=== PATIENT | female | born 1980 | race Caucasian/White ===

== ENCOUNTER 2019-07-04 15:22 | Emergency (ER) | payer OTHER, SELFPAY ==
[2019-07-04 15:26] VITALS: BP 129/81; PULSE 94; RESP 18; TEMP 36.2; O2SAT 94; BMI 44.9
--- NOTE | 2019-07-04 15:51 | DI.RAD.S_ITS ---
PROCEDURE: XR CHEST 1V INDICATIONS: chest pain TECHNIQUE: One view of the chest was acquired. COMPARISON: None. FINDINGS: Surgical changes and devices: None. Lungs and pleura: Lungs are clear. No pleural effusions or pneumothorax. Mediastinum: Mediastinal contours appear normal. Heart size is normal. Bones and chest wall: No suspicious bony lesions. Overlying soft tissues appear unremarkable. IMPRESSION: No acute cardio pulmonary disease. Dictated by: Anais Holley M.D. on 07/04/2019 at 16:58 Approved by: Anais Holley M.D. on 07/04/2019 at 16:59
[2019-07-04 16:28] LABS: Add Manual Diff / Slide Review NO; Basophils Absolute Auto 100 /uL (0-100); Basophils Percent Auto 0.5 % (0-2); Eosinophils Absolute Auto 0 /uL (0-450); Eosinophils Percent Auto 0.2 % (2-4); Hematocrit 38.4 % (36-46); Hemoglobin 12.8 g/dL (12.0-16.0); Lymphocytes Absolute Auto 2000 /uL (1100-4500); Mean Corpuscular HGB Conc 33.3 % (30-36); Mean Corpuscular Hemoglobin 31.6 PG (26-34); Mean Corpuscular Volume 94.8 fL (80-100); Monocytes Absolute Auto 700 /uL (0-900); Monocytes Percent Auto 4.3 % (3-14); Neutrophils Absolute Auto 12800 /uL (1500-7000); Platelet Count 480 X10^3/uL (150-400); Red Blood Cell Count 4.05 X10^6/uL (4.0-5.2); Red Cell Distribution Width 12.8 % (11.6-14.8); White Blood Cell Count 15.6 X10^3/uL (4.5-11.0)
[2019-07-04 16:36] LABS: Prothrombin Time 11.5 SECONDS (10.1-12.7)
[2019-07-04 16:38] VITALS: BP 131/71; PULSE 92; O2SAT 93
[2019-07-04 16:39] LABS: PTT Partial Thromboplastin Tim 34 SECONDS (26.4-36.2)
[2019-07-04 16:41] LABS: Alanine Aminotransferase 24 IU/L (9-52); Albumin 4.3 g/dL (3.5-5.0); Albumin Globulin Ratio 1.2 (1.0-2.8); Alkaline Phosphatase 65 U/L (38-126); Aspartate Aminotransferase 19 IU/L (14-36); Bilirubin Total 0.5 mg/dL (0.2-1.3); Blood Urea Nitrogen 12 mg/dL (7-17); Calcium 9.6 mg/dL (8.4-10.2); Carbon Dioxide 26 mmol/L (22-32); Chloride 100 mmol/L (98-107); Creatine Kinase 61 U/L (30-135); Estimated Glomerular Filt Rate > 60.0 mL/min (>60); Globulin 3.6 g/dL (1.7-4.1); Glucose 124 mg/dL (70-100); HEMOLYSIS < 15 (0-50); Lipase 171 U/L (23-300); Potassium 4.4 mmol/L (3.4-5.1); Sodium 137 mmol/L (137-145); Total Protein 7.9 g/dL (6.3-8.2)
[2019-07-04 16:52] LABS: Troponin I < 0.012 ng/mL (0.01-0.034)
--- NOTE | 2019-07-04 17:02 | ED_ITS ---
HPI - Dizziness <PARRISH Eagle - Last Filed: 07/04/19 22:10> General Chief Complaint: Dizziness Stated Complaint: DIZZY NAUSEA HEADACHE Time Seen by Provider: 07/04/19 16:08 Source: patient Mode of arrival: ambulatory Limitations: no limitations History of Present Illness HPI Narrative: 39-year-old female with a history of DM II, PCOS, hypertension, presents emergency department today complaining of dizziness starting on Sunday. States it feels like the room is spinning, the dizziness got worse around noon today and she started feeling nauseated. She states she has had an episode of vertigo in the past but this feels a little bit different. Additionally, she states that she feels her entire body is weak. She denies any fevers, ear pain, headaches, vision changes, recent illness, neck pain, chest pain, shortness of breath, abdominal pain, vomiting, diarrhea, lower leg swelling, facial droop, slurred speech, difficulty swelling, or syncope. Related Data Home Medications Medication Instructions Recorded Confirmed hydrochlorothiazide 25 mg PO DAILY 07/04/19 07/04/19 lisinopril 20 mg PO DAILY 07/04/19 07/04/19 pioglitazone mg 07/04/19 sitagliptin-metformin [Janumet] tab 07/04/19 Previous Rx's Medication Instructions Recorded meclizine 50 mg PO BID PRN #10 tab 07/04/19 Allergies Allergy/AdvReac Type Severity Reaction Status Date / Time No Known Drug Allergies Allergy Verified 07/04/19 15:30 Review of Systems <PARRISH Eagle - Last Filed: 07/04/19 22:10> Review of Systems Narrative: REVIEW OF SYSTEMS: GENERAL: Denies fever, chills, malaise, or wt. loss. HENT: No head trauma, hearing loss, rhinorrhea, epistaxis, sinus pressure, sore throat, or dysphagia. EYES: No loss of vision, double vision, eye pain, or irritation. CARDIOVASCULAR: No chest pain, palpitations, edema, syncope, or orthopnea. RESPIRATORY: No shortness of breath, cough, or wheeze. GASTROINTESTINAL: Complains of nausea, see HPI. GENITOURINARY: No flank pain, urinary incontinence, hesitancy, frequency, or dysuria. MUSCULOSKELETAL: No pain, weakness, or deformities. INTEGUMENTARY: No rash, lesions, or pruritus. NEURO: Complains of vertigo, see HPI. No numbness, tingling, memory loss, confusion, or headaches. PSYCH: No behavior or mood changes. LYMPHATIC: No lymphadenopathy. PFSH <PARRISH Eagle - Last Filed: 07/04/19 22:10> Medical History Diabetes (Acute) Social History Smoking Status: Former smoker Social History Smoking Status: Former smoker Exam <PARRISH Eagle - Last Filed: 07/04/19 22:10> Initial Vital Signs Initial Vital Signs: Vital Signs Temperature 97.1 F L 07/04/19 15:26 Pulse Rate 94 H 07/04/19 15:26 Respiratory Rate 18 07/04/19 15:26 Blood Pressure 129/81 07/04/19 15:26 Pulse Oximetry 94 07/04/19 15:26 PHYSICAL EXAMINATION: GENERAL: Well groomed, alert, and cooperative. Answers questions promptly and appropriately. Vital signs noted. Patient is lying down a stretcher covering her eyes due to dizziness during exam. HENT: Normocephalic, atraumatic. Ear canals patent, TMs and visible due to impacted wax in both ear canals bilaterally, Oral mucosa is pink and moist, no caries or lesions present. Pharynx without erythema. EYES: PERRLA, EOMIs, conjunctiva pink, sclera white, no periorbital swelling. Left beating horizontal nystagmus when patient is asked to looked to left. NECK: Full range of motion, nontender. LYMPH: No lymphadenopathy. CARDIOVASCULAR: S1 and S2 sounds normal. Regular rate and rhythm, no murmurs, cl icks, or bruits. No pedal edema. RESPIRATORY: Normal respiratory rate, trachea midline, airway patent. No stridor, nasal flaring or accessory muscle use. Lungs are clear in all mayes without wheeze, rhonchi, or crackles. GASTROINTESTINAL: Bowel sounds normoactive. Abdomen is soft and non-tender. No organomegaly. MUSCULOSKELETAL: Normal gait and coordination. Equal tone and mass bilaterally. No spinal tenderness or deformities. EXTREMITIES: CMS intact. Moves all extremities. SKIN: Warm, dry, soft, appropriate color for ethnicity. No lesions, rashes, or wounds. NEURO: Alert and Oriented X 3. CN III-XII grossly intact. Good coordination. No ataxia, or sensory deficits, or cognitive issues. 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 Patient is right-hand dominant. Patient denies decrease in light touch sensation to upper or lower extremities. NIH score is 0. Positive Maribel- Hallpike maneuver with increased symptoms such as nausea and dizziness. PSYCH: Appropriate affect and mood. <Noelle Heredia DO - Last Filed: 07/08/19 21:44> Initial Vital Signs Initial Vital Signs: Vital Signs Temperature 97.1 F L 07/04/19 15:26 Pulse Rate 94 H 07/04/19 15:26 Respiratory Rate 18 07/04/19 15:26 Blood Pressure 129/81 07/04/19 15:26 Pulse Oximetry 94 07/04/19 15:26 Scores <PARRISH Eagle - Last Filed: 07/04/19 22:10> NIH Stroke Scale Level of Conciousness: Alert, keenly responsive Ask month/age: Answers both questions correctly. Open/close eyes, close hand: Performs both tasks correctly Best gaze horizontal: Normal Visual mayes: No visual loss Facial palsy: Normal symetrical movement Left arm drift: No drift for full 10 sec Right arm drift: No drift for full 10 sec Left leg drift: No drift for full 10 sec Right leg drift: No drift for full 10 sec Limb ataxia: Absent Sensory on face/arms/legs: Normal, no sensory loss Best language: No aphasia, normal Dysarthria: Normal Extinction or inattention: No abnormality Total NIH Stroke scale score: 0 Course <PARRISH Eagle - Last Filed: 07/04/19 22:10> Course Course Narrative: Examination of slight decrease in strength left arm was concerning. CT in March CT head were ordered after much discussion with patient, she agreed that her symptoms are concerning. Patient states she felt slightly the better after administration of fluid and Zofran however she still felt dizzy. After test results came back as negative she was given meclizine, she states she continued to feel better after this. 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 She states is often above 15 and that a white blood cell count 15 was good for her. Orders Ordered: Discontinued Medications Sodium Chloride (Normal Saline 0.9%) 1,000 mls @ 1,000 mls/hr IV BOLUS ONE Stop: 07/04/19 17:55 Last Infusion: 07/04/19 19:48 Dose: 0 mls/hr Documented by: Admin: 07/04/19 17:06 Dose: 1,000 mls/hr Documented by: OG Meclizine HCl (Antivert) 50 mg PO NOW ONE Stop: 07/04/19 19:35 Last Admin: 07/04/19 19:44 Dose: 50 mg Documented by: LELA Ondansetron HCl (Zofran) 4 mg IV NOW ONE Stop: 07/04/19 16:57 Last Admin: 07/04/19 17:06 Dose: 4 mg Documented by: OG Consultations Consultation #1: Patient was staffed with Dr. Heredia Vital Signs Vital signs: Vital Signs - 8 hr 07/04/19 15:26 07/04/19 16:38 07/04/19 19:54 Temperature 97.1 F L Pulse Rate 94 H 92 H 82 Respiratory Rate 18 19 Blood Pressure 129/81 Blood Pressure [Left Arm] 131/71 115/69 Pulse Oximetry 94 93 100 <Noelle Heredia, - Last Filed: 07/08/19 21:44> Orders Ordered: Discontinued Medications Sodium Chloride (Normal Saline 0.9%) 1,000 mls @ 1,000 mls/hr IV BOLUS ONE Stop: 07/04/19 17:55 Last Infusion: 07/04/19 19:48 Dose: 0 mls/hr Documented by: Admin: 07/04/19 17:06 Dose: 1,000 mls/hr Documented by: OG Meclizine HCl (Antivert) 50 mg PO NOW ONE Stop: 07/04/19 19:35 Last Admin: 07/04/19 19:44 Dose: 50 mg Documented by: LELA Ondansetron HCl (Zofran) 4 mg IV NOW ONE Stop: 07/04/19 16:57 Last Admin: 07/04/19 17:06 Dose: 4 mg Documented by: HFARRINGTO Vital Signs Vital signs: Vital Signs - 8 hr 07/04/19 15:26 07/04/19 16:38 07/04/19 19:54 Temperature 97.1 F L Pulse Rate 94 H 92 H 82 Respiratory Rate 18 19 Blood Pressure 129/81 Blood Pressure [Left Arm] 131/71 115/69 Pulse Oximetry 94 93 100 MDM - Dizziness <PARRISH Eagle - Last Filed: 07/04/19 22:10> Medical Records Attestation: I reviewed the patient's medical records. Lab Data Attestation: I reviewed the patient's lab results. Result diagrams: 07/04/19 16:21 07/04/19 16:21 Labs: Lab Results 07/04/19 07/04/19 07/04/19 Range/Units 16:21 16:21 16:21 WBC 15.6 H (4.5-11.0) X10^3/uL RBC 4.05 (4.0-5.2) X10^6/uL Hgb 12.8 (12.0-16.0) g/dL Hct 38.4 (36-46) % MCV 94.8 (80-100) fL MCH 31.6 (26-34) PG MCHC 33.3 (30-36) % RDW 12.8 (11.6-14.8) % Plt Count 480 H (150-400) X10^3/uL Neut % (Auto) 82.0 H (50-75) % Lymph % (Auto) 13.0 L (25-40) % Newton % (Auto) 4.3 (3-14) % Eos % (Auto) 0.2 L (2-4) % Baso % (Auto) 0.5 (0-2) % Neut # (Auto) 57463 H (3183-6715) /uL Lymph # (Auto) 2000 (1483-8223) /uL Newton # (Auto) 700 (0-900) /uL Eos # (Auto) 0 (0-450) /uL Baso # (Auto) 100 (0-100) /uL PT 11.5 (10.1-12.7) SECONDS INR 1.0 (0.9-1.3) APTT 34 (26.4-36.2) SECONDS Sodium 137 (137-145) mmol/L Potassium 4.4 (3.4-5.1) mmol/L Chloride 100 (98-107) mmol/L Carbon Dioxide 26 (22-32) mmol/L BUN 12 (7-17) mg/dL Creatinine 0.60 (0.52-1.04) mg/dL Estimated GFR > 60.0 (>60) mL/min BUN/Creatinine Ratio 20.0 (6-22) Glucose 124 H (70-100) mg/dL Calcium 9.6 (8.4-10.2) mg/dL Total Bilirubin 0.5 (0.2-1.3) mg/dL AST 19 (14-36) IU/L ALT 24 (9-52) IU/L Alkaline Phosphatase 65 (38-126) U/L Total Creatine Kinase 61 (30-135) U/L CK-MB (CK-2) TNP CK-MB (CK-2) Rel Index TNP Troponin I < 0.012 (0.01-0.034) ng/mL Total Protein 7.9 (6.3-8.2) g/dL Albumin 4.3 (3.5-5.0) g/dL Globulin 3.6 (1.7-4.1) g/dL Albumin/Globulin Ratio 1.2 (1.0-2.8) Lipase 171 (23-300) U/L HCG, Quant mIU/mL Urine RBC (0-5/HPF) Urine WBC (0-5/HPF) Ur Squamous Epith Cells (0-5/HPF) Urine Bacteria (None) Ur Culture Indicated? 07/04/19 07/04/19 Range/Units 16:21 17:50 WBC (4.5-11.0) X10^3/uL RBC (4.0-5.2) X10^6/uL Hgb (12.0-16.0) g/dL Hct (36-46) % MCV (80-100) fL MCH (26-34) PG MCHC (30-36) % RDW (11.6-14.8) % Plt Count (150-400) X10^3/uL Neut % (Auto) (50-75) % Lymph % (Auto) (25-40) % Newton % (Auto) (3-14) % Eos % (Auto) (2-4) % Baso % (Auto) (0-2) % Neut # (Auto) (6611-5770) /uL Lymph # (Auto) (7405-2212) /uL Newton # (Auto) (0-900) /uL Eos # (Auto) (0-450) /uL Baso # (Auto) (0-100) /uL PT (10.1-12.7) SECONDS INR (0.9-1.3) APTT (26.4-36.2) SECONDS Sodium (137-145) mmol/L Potassium (3.4-5.1) mmol/L Chloride (98-107) mmol/L Carbon Dioxide (22-32) mmol/L BUN (7-17) mg/dL Creatinine (0.52-1.04) mg/dL Estimated GFR (>60) mL/min BUN/Creatinine Ratio (6-22) Glucose (70-100) mg/dL Calcium (8.4-10.2) mg/dL Total Bilirubin (0.2-1.3) mg/dL AST (14-36) IU/L ALT (9-52) IU/L Alkaline Phosphatase (38-126) U/L Total Creatine Kinase (30-135) U/L CK-MB (CK-2) CK-MB (CK-2) Rel Index Troponin I (0.01-0.034) ng/mL Total Protein (6.3-8.2) g/dL Albumin (3.5-5.0) g/dL Globulin (1.7-4.1) g/dL Albumin/Globulin Ratio (1.0-2.8) Lipase (23-300) U/L HCG, Quant < 2.39 mIU/mL Urine RBC None seen (0-5/HPF) Urine WBC None seen (0-5/HPF) Ur Squamous Epith Cells 5-10 /hpf H (0-5/HPF) Urine Bacteria None seen (None) Ur Culture Indicated? Cult not indicated Point of Care Testing Test Results Negative Urine Dip Bedside Urine Glucose Negative Bedside Urine Bilirubin - Negative Bedside Urine Ketone - Negative Urine Specific [place] 1.010 Bedside Urine Occult Blood - Negative Bedside Urine pH 7 Bedside Urine Protein - Negative Bedside Urine Urobilinogen - Negative Bedside Urine Nitrite - Negative Bedside Urine Leukocytes ++ 125 Esterase Imaging Data Chest x-ray: Radiologist's impression: [address] [place] [address] XRay Report Signed Patient: Noelle Santiago EMR#: [id number] : 1980Acct:[id number] Age/Sex: 39 / FDate of Service: 07/04/19 Loc: ED Accession Number: [id number] Procedure: XR chest 1V Ordering Provider: Noelle Heredia D.O. PROCEDURE: XR CHEST 1V INDICATIONS: chest pain TECHNIQUE: One view of the chest was acquired. COMPARISON: None. FINDINGS: Surgical changes and devices: None. Lungs and pleura: Lungs are clear. No pleural effusions or pneumothorax. Mediastinum: Mediastinal contours appear normal. Heart size is normal. Bones and chest wall: No suspicious bony lesions. Overlying soft tissues appear unremarkable. IMPRESSION: No acute cardio pulmonary disease. Dictated by: Anais Holley M.D. on 07/04/2019 at 16:58 Approved by: Anais Holley M.D. on 07/04/2019 at 16:59 CT scan - head: Radiologist's impression: [address] [address] [address] Scan Report Signed Patient: Noelle Santiago EMR#: [id number] : 1980Acct:[id number] Age/Sex: 39 / FDate of Service: 07/04/19 Loc: ED Accession Number: [id number] Procedure: CT angio head and neck Ordering Provider: Nita Freitas PROCEDURE: CT ANGIO HEAD AND NECK INDICATIONS: L arm weakness, vertigo TECHNIQUE: Pre-contrast 4.5 mm thick sections acquired from the foramen magnum to the vertex. After the administration of intravenous contrast, 1 mm thick sections acquired from the aortic arch through the Orrick of Rendon. Post-contrast 4.5 mm thick sections then re- acquired from the foramen magnum to the vertex. 3-dimensional maximu a-cadjxsexk-azfmjuwfhz (MIP) and/or volume rendering reformats were acquired of the central intracranial vasculature and neck separately. COMPARISON: None. FINDINGS: Image quality: Suboptimal evaluation due to difficult intravenous access, and decreased contrast material injection rate. BRAIN: CSF spaces: Ventricles are normal in size and shape. Basal cisterns are patent. No extra-axial fluid collections. Brain: No midline shift. No intracranial bleeds or masses. Oconnell-white matter interface appears intact. Skull and face: Calvarium and facial bones appear intact, without suspicious lesions. Orbits appear normal. Mild bilateral maxillary sinus disease. HEAD CT ANGIOGRAPHY: Anterior circulation: Intracranial internal carotid arteries are normal in size and flow. The flow within the paired anterior cerebral arteries is normal and symmetric. The flow within the middle cerebral arteries is normal and symmetric. The anterior communicating artery is seen. No aneurysms are seen. Posterior circulation: Visualized portions of the vertebral arteries demonstrate normal caliber, and join to form a normal appearing basilar artery. Flow within the posterior cerebral arteries is normal and symmetric. No aneurysms are seen. NECK CT ANGIOGRAPHY: Carotid system: The great vessels demonstrate a conventional anatomy as they arise from the aortic arch. The origins of the common carotid arteries appear patent. The common carotid arteries demonstrate normal caliber and courses. The bifurcation regions are both widely patent. The internal carotid arteries demonstrate normal calibers and courses. Posterior circulation: Dominant left vertebral artery. The vertebral arteries appear grossly patent. They join to form a normal appearing basilar artery. Soft tissues: Visualized neck soft tissues demonstrate no suspicious abnormalities. Bones: No suspicious bony lesions. Visualized cervical spine appears normally aligned. IMPRESSION: No acute intracranial process. Suboptimal evaluation due to decreased contrast material flow rate as above. No definite intracranial focal stenosis or occlusion. No ICA stenosis. Dominant left vertebral artery. Mild bilateral maxillary sinus disease. Any quantitative measurements of stenosis were performed using NASCET criteria. Dictated by: Ashish Brown M.D. on 07/04/2019 at 18:57 Approved by: Ashish Brown M.D. on 07/04/2019 at 19:02 ECG Data Interpretation: Normal sinus rhythm, rate 85, pr interval 166, QTC 380. No ST elevation or ST depression, new T-wave abnormality, no ectopy. EKG was also viewed by Dr. Heredia. [facility] Narrative Medical decision making narrative: Differential includes benign positional vertigo (positive Hallpike's maneuver, horizontal nystagmus, negative CT angio, but resolution of symptoms with Zofran and meclizine), vertigo due to inner ear etiology (sinus swelling noted on CT, bilateral wax impactions to both ear canals is noted on exam), less likely CVA (negative CT angio, resolving symptoms, however due to slight difference in her left arm strength-which may be related to the fact that she is right-hand dominant, patient was instructed that close follow-up is necessary.), cardiac etiology (less likely due to non remarkable EKG and unremarkable labs), less likely infection (patient reports she has had chronically elevated white blood cell count as well as an elevated platelet count, lack of systemic symptoms such as fever). Strict return precautions given and follow-up instructions discussed. <Noelle Heredia, DO - Last Filed: 07/08/19 21:44> Lab Data Labs: Lab Results 07/04/19 07/04/19 07/04/19 Range/Units 16:21 16:21 16:21 WBC 15.6 H (4.5-11.0) X10^3/uL RBC 4.05 (4.0-5.2) X10^6/uL Hgb 12.8 (12.0-16.0) g/dL Hct 38.4 (36-46) % MCV 94.8 (80-100) fL MCH 31.6 (26-34) PG MCHC 33.3 (30-36) % RDW 12.8 (11.6-14.8) % Plt Count 480 H (150-400) X10^3/uL Neut % (Auto) 82.0 H (50-75) % Lymph % (Auto) 13.0 L (25-40) % Newton % (Auto) 4.3 (3-14) % Eos % (Auto) 0.2 L (2-4) % Baso % (Auto) 0.5 (0-2) % Neut # (Auto) 30109 H (6425-2718) /uL Lymph # (Auto) 2000 (0547-8821) /uL Newton # (Auto) 700 (0-900) /uL Eos # (Auto) 0 (0-450) /uL Baso # (Auto) 100 (0-100) /uL PT 11.5 (10.1-12.7) SECONDS INR 1.0 (0.9-1.3) APTT 34 (26.4-36.2) SECONDS Sodium 137 (137-145) mmol/L Potassium 4.4 (3.4-5.1) mmol/L Chloride 100 (98-107) mmol/L Carbon Dioxide 26 (22-32) mmol/L BUN 12 (7-17) mg/dL Creatinine 0.60 (0.52-1.04) mg/dL Estimated GFR > 60.0 (>60) mL/min BUN/Creatinine Ratio 20.0 (6-22) Glucose 124 H (70-100) mg/dL Calcium 9.6 (8.4-10.2) mg/dL Total Bilirubin 0.5 (0.2-1.3) mg/dL AST 19 (14-36) IU/L ALT 24 (9-52) IU/L Alkaline Phosphatase 65 (38-126) U/L Total Creatine Kinase 61 (30-135) U/L CK-MB (CK-2) TNP CK-MB (CK-2) Rel Index TNP Troponin I < 0.012 (0.01-0.034) ng/mL Total Protein 7.9 (6.3-8.2) g/dL Albumin 4.3 (3.5-5.0) g/dL Globulin 3.6 (1.7-4.1) g/dL Albumin/Globulin Ratio 1.2 (1.0-2.8) Lipase 171 (23-300) U/L HCG, Quant mIU/mL Urine RBC (0-5/HPF) Urine WBC (0-5/HPF) Ur Squamous Epith Cells (0-5/HPF) Urine Bacteria (None) Ur Culture Indicated? 07/04/19 07/04/19 Range/Units 16:21 17:50 WBC (4.5-11.0) X10^3/uL RBC (4.0-5.2) X10^6/uL Hgb (12.0-16.0) g/dL Hct (36-46) % MCV (80-100) fL MCH (26-34) PG MCHC (30-36) % RDW (11.6-14.8) % Plt Count (150-400) X10^3/uL Neut % (Auto) (50-75) % Lymph % (Auto) (25-40) % Newton % (Auto) (3-14) % Eos % (Auto) (2-4) % Baso % (Auto) (0-2) % Neut # (Auto) (2209-6862) /uL Lymph # (Auto) (3603-7248) /uL Newton # (Auto) (0-900) /uL Eos # (Auto) (0-450) /uL Baso # (Auto) (0-100) /uL PT (10.1-12.7) SECONDS INR (0.9-1.3) APTT (26.4-36.2) SECONDS Sodium (137-145) mmol/L Potassium (3.4-5.1) mmol/L Chloride (98-107) mmol/L Carbon Dioxide (22-32) mmol/L BUN (7-17) mg/dL Creatinine (0.52-1.04) mg/dL Estimated GFR (>60) mL/min BUN/Creatinine Ratio (6-22) Glucose (70-100) mg/dL Calcium (8.4-10.2) mg/dL Total Bilirubin (0.2-1.3) mg/dL AST (14-36) IU/L ALT (9-52) IU/L Alkaline Phosphatase (38-126) U/L Total Creatine Kinase (30-135) U/L CK-MB (CK-2) CK-MB (CK-2) Rel Index Troponin I (0.01-0.034) ng/mL Total Protein (6.3-8.2) g/dL Albumin (3.5-5.0) g/dL Globulin (1.7-4.1) g/dL Albumin/Globulin Ratio (1.0-2.8) Lipase (23-300) U/L HCG, Quant < 2.39 mIU/mL Urine RBC None seen (0-5/HPF) Urine WBC None seen (0-5/HPF) Ur Squamous Epith Cells 5-10 /hpf H (0-5/HPF) Urine Bacteria None seen (None) Ur Culture Indicated? Cult not indicated Point of Care Testing Test Results Negative Urine Dip Bedside Urine Glucose Negative Bedside Urine Bilirubin - Negative Bedside Urine Ketone - Negative Urine Specific [place] 1.010 Bedside Urine Occult Blood - Negative Bedside Urine pH 7 Bedside Urine Protein - Negative Bedside Urine Urobilinogen - Negative Bedside Urine Nitrite - Negative Bedside Urine Leukocytes ++ 125 Esterase Discharge Plan Departure Patient Disposition: Home Clinical Impression: Vertigo, Dizziness Discharge Date/Time: 07/04/19 20:05 Instructions: DI for Vertigo Activity Restrictions/Additional Instructions: Thank you for entrusting me with your care today. As discussed, her labs do not indicate inflammation for your vertigo, your CT scan shows sinus inflammation which may be contributing to vertigo and were negative for any strokes. Your white blood cell count was 15.6. I prescribed you a medication called meclizine, this should help with your vertigo. I also recommend buy [id number] ear drops to soften the wax in your ear. Please follow up with her primary care provider in the next week for re-evaluation. Return to the emergency department for syncope, chest pain, shortness of breath, high fevers, facial droop, limb weakness, or other concerning symptoms. Prescriptions: New meclizine 25 mg tablet 50 mg PO BID PRN (Reason: dizziness) Qty: 10 RF: 0 No Action lisinopril 20 mg tablet 20 mg PO DAILY RF: 0 hydrochlorothiazide 25 mg tablet 25 mg PO DAILY RF: 0 pioglitazone 30 mg tablet RF: 0 Janumet 50-1,000 mg tablet RF: 0 Stand Alone Forms: Work Release Note
[2019-07-04] MEDS: SODIUM CHLORIDE 0.9% 1,000 ML 1000 ML IV (17:06)
[2019-07-04] MEDS: ONDANSETRON 4 MG/2 ML INJ IV (17:06)
--- NOTE | 2019-07-04 17:09 | DI.CT.S_ITS ---
PROCEDURE: CT ANGIO HEAD AND NECK INDICATIONS: L arm weakness, vertigo TECHNIQUE: Pre-contrast 4.5 mm thick sections acquired from the foramen magnum to the vertex. After the administration of intravenous contrast, 1 mm thick sections acquired from the aortic arch through the [place] of [place]. Post-contrast 4.5 mm thick sections then re-acquired from the foramen magnum to the vertex. 3-dimensional cewqmvo-ptrbjbckd-igrcojnapq (MIP) and/or volume rendering reformats were acquired of the central intracranial vasculature and neck separately. COMPARISON: None. FINDINGS: Image quality: Suboptimal evaluation due to difficult intravenous access, and decreased contrast material injection rate. BRAIN: CSF spaces: Ventricles are normal in size and shape. Basal cisterns are patent. No extra-axial fluid collections. Brain: No midline shift. No intracranial bleeds or masses. [place]-white matter interface appears intact. Skull and face: Calvarium and facial bones appear intact, without suspicious lesions. Orbits appear normal. Mild bilateral maxillary sinus disease. HEAD CT ANGIOGRAPHY: Anterior circulation: Intracranial internal carotid arteries are normal in size and flow. The flow within the paired anterior cerebral arteries is normal and symmetric. The flow within the middle cerebral arteries is normal and symmetric. The anterior communicating artery is seen. No aneurysms are seen. Posterior circulation: Visualized portions of the vertebral arteries demonstrate normal caliber, and join to form a normal appearing basilar artery. Flow within the posterior cerebral arteries is normal and symmetric. No aneurysms are seen. NECK CT ANGIOGRAPHY: Carotid system: The great vessels demonstrate a conventional anatomy as they arise from the aortic arch. The origins of the common carotid arteries appear patent. The common carotid arteries demonstrate normal caliber and courses. The bifurcation regions are both widely patent. The internal carotid arteries demonstrate normal calibers and courses. Posterior circulation: Dominant left vertebral artery. The vertebral arteries appear grossly patent. They join to form a normal appearing basilar artery. Soft tissues: Visualized neck soft tissues demonstrate no suspicious abnormalities. Bones: No suspicious bony lesions. Visualized cervical spine appears normally aligned. IMPRESSION: No acute intracranial process. Suboptimal evaluation due to decreased contrast material flow rate as above. No definite intracranial focal stenosis or occlusion. No ICA stenosis. Dominant left vertebral artery. Mild bilateral maxillary sinus disease. Any quantitative measurements of stenosis were performed using NASCET criteria. Dictated by: Ashish Brown M.D. on 07/04/2019 at 18:57 Approved by: Ashish Brown M.D. on 07/04/2019 at 19:02
[2019-07-04 18:15] LABS: HCG Quantitative /Beta subunit < 2.39 mIU/mL
[2019-07-04 18:17] LABS: Bacteria Urine None Seen; RBC Urine None Seen (0-5/HPF); WBC Urine None Seen (0-5/HPF)
[2019-07-04 18:46] LABS: Culture Indicated Urine Cult Not Indicated; Squamous Epithelial Cell Urine 5-10 /HPF (0-5/HPF)
[2019-07-04] MEDS: MECLIZINE HCL 12.5 MG TABLET 50 MG PO (19:44)
[2019-07-04 19:54] VITALS: BP 115/69; PULSE 82; RESP 19; O2SAT 100
== END 2019-07-04 20:05 | disposition home or self-care (01) ==
PROVIDERS: Emergency Medicine; Emergency Provider Nurse Practitioner
DX: R42 Dizziness and giddiness (principal)
CPT/HCPCS: 36415; 70496; 70498; 71045; 80053; 81003; 81015; 81025; 82550; 83690; 84484; 84702; 85025; 85610; 85730; 93005; 96361; 96374; 99284; 99285; J2405; Q9967

== ENCOUNTER → 2020-12-16 11:14 | Outpatient (CLI) | payer OTHER, SELFPAY ==
--- NOTE | 2020-12-16 11:15 | DI.US.S_ITS ---
PROCEDURE: US PELVIC COMPLETE INDICATIONS: HISTORY OF FIBROIDS TECHNIQUE: Real-time scanning was performed of the pelvic organs, with image documentation. Additional endovaginal scanning was necessary due to incomplete visualization of the adnexal and endometrial structures by transabdominal scanning. COMPARISON: None. FINDINGS: Examination is limited by body habitus and bowel gas Uterus: Uterus is normal in size at 9.3 x 6.6 x 4.2 cm. The endometrium measures 3.7 mm in combined thickness. IUD is visualized within the uterine fundus. Ovaries: Not well seen Other: No pathologic free abdominal or pelvic fluid. IMPRESSION: Limited examination demonstrating IUD within the endometrial canal. Dictated by: Jeremy Guaman M.D. on 12/16/2020 at 16:42 Approved by: Jeremy Guaman M.D. on 12/16/2020 at 16:43
== END ==
PROVIDERS: PCP Registered Nurse Diabetes Educator; Referring Provider Registered Nurse Diabetes Educator; Visit Provider Registered Nurse Diabetes Educator
DX: Z87.42 Personal history of other diseases of the female genital tract (principal); Z97.5 Presence of (intrauterine) contraceptive device
CPT/HCPCS: 76830; 76856

== ENCOUNTER → 2021-01-12 14:47 | Outpatient (CLI) | payer OTHER, SELFPAY ==
[2021-01-12] MEDS: COVID-19 VACC #1, MRNA(MOD) 100 MCG/0.5 ML VIAL IM (15:08)
== END ==
PROVIDERS: PCP Registered Nurse Diabetes Educator; Visit Provider Internal Medicine
DX: Z23 Encounter for immunization (principal)
CPT/HCPCS: 0011A; 91301

== ENCOUNTER → 2021-01-18 14:28 | Outpatient (CLI) | payer OTHER, SELFPAY | PROVIDERS: PCP Registered Nurse Diabetes Educator; Visit Provider Physician Assistant | DX: L60.0 Ingrowing nail (principal); L03.031 Cellulitis of right toe | CPT/HCPCS: 87070; 87075; 87077; 87186; 87205 ==

== ENCOUNTER → 2021-01-28 10:12 | Outpatient (CLI) | payer OTHER, SELFPAY ==
[2021-01-28 10:49] LABS: Hematocrit 33.1 % (36-46); Hemoglobin 10.6 g/dL (12.0-16.0); Mean Corpuscular HGB Conc 31.9 % (30-36); Mean Corpuscular Hemoglobin 27.3 PG (26-34); Mean Corpuscular Volume 85.4 fL (80-100); Platelet Count 529 X10^3/uL (150-400); Red Blood Cell Count 3.87 X10^6/uL (4.0-5.2); Red Cell Distribution Width 17.1 % (11.6-14.8); White Blood Cell Count 12.7 X10^3/uL (4.5-11.0)
[2021-01-28 11:02] LABS: Alanine Aminotransferase 19 IU/L (<35); Albumin 4.2 g/dL (3.5-5.0); Albumin Globulin Ratio 1.3 (1.0-2.8); Alkaline Phosphatase 64 U/L (38-126); Aspartate Aminotransferase 20 IU/L (14-36); BUN Creatinine Ratio 17.5 (6-22); Bilirubin Total 0.3 mg/dL (0.2-1.3); Blood Urea Nitrogen 10 mg/dL (7-17); Calcium 9.1 mg/dL (8.4-10.2); Carbon Dioxide 27 mmol/L (22-32); Chloride 99 mmol/L (98-107); Cholesterol 215 mg/dL (140-199); Estimated Glomerular Filt Rate > 60.0 mL/min (>60); Globulin 3.3 g/dL (1.7-4.1); Glucose 157 mg/dL (70-100); HDL Cholesterol 30 mg/dL (40-60); HEMOLYSIS < 15 (0-50); LDL Cholesterol Calculated 122 mg/dL (<100); Potassium 4.4 mmol/L (3.4-5.1); Sodium 135 mmol/L (137-145); Total Protein 7.5 g/dL (6.3-8.2); Triglycerides 317 mg/dL (35-150)
[2021-01-28 11:50] LABS: Creatinine Urine Random 39.3 mg/dL
[2021-01-28 11:53] LABS: Microalbumi Creatinin Ratio Ur 20.3 ug/mg CR (<30); Microalbumin Urine Random 0.8 mg/dL (0-1.6)
[2021-01-28 12:23] LABS: TSH w/ Reflex to FT4 0.76 uIU/mL (0.47-4.68)
== END ==
PROVIDERS: PCP Registered Nurse Diabetes Educator; Referring Provider Registered Nurse Diabetes Educator; Visit Provider Registered Nurse Diabetes Educator
DX: E11.9 Type 2 diabetes mellitus without complications (principal)
CPT/HCPCS: 36415; 80053; 80061; 82043; 82570; 83036; 84443; 85027

== ENCOUNTER → 2021-02-09 14:30 | Outpatient (CLI) | payer OTHER, SELFPAY ==
[2021-02-09] MEDS: COVID-19 VACC #2, MRNA(MOD) 100 MCG/0.5 ML VIAL IM (14:37)
== END ==
PROVIDERS: PCP Registered Nurse Diabetes Educator; Visit Provider Internal Medicine
DX: Z23 Encounter for immunization (principal)
CPT/HCPCS: 0012A; 91301

== ENCOUNTER → 2021-05-18 13:33 | Outpatient (CLI) | payer OTHER, SELFPAY | PROVIDERS: PCP Registered Nurse Diabetes Educator; Referring Provider Registered Nurse Diabetes Educator; Visit Provider Registered Nurse Diabetes Educator | DX: Z20.822 Contact with and (suspected) exposure to COVID-19 (principal) | CPT/HCPCS: 87635 ==

== ENCOUNTER 2021-05-23 16:19 | Emergency (ER) | payer OTHER, SELFPAY ==
[2021-05-23 16:34] VITALS: BP 156/89; PULSE 126; RESP 20; TEMP 36.1; O2SAT 98; BMI 49.9
[2021-05-23] MEDS: ONDANSETRON 4 MG/2 ML INJ IV (16:51)
[2021-05-23 17:20] LABS: Add Manual Diff / Slide Review NO; Basophils Absolute Auto 100 /uL (0-100); Basophils Percent Auto 0.6 % (0-2); Eosinophils Absolute Auto 0 /uL (0-450); Eosinophils Percent Auto 0.3 % (2-4); Hematocrit 39.3 % (36-46); Hemoglobin 12.8 g/dL (12.0-16.0); Lymphocytes Absolute Auto 2900 /uL (1100-4500); Lymphocytes Percent Auto 16.8 % (25-40); Mean Corpuscular HGB Conc 32.7 % (30-36); Mean Corpuscular Hemoglobin 28.8 PG (26-34); Mean Corpuscular Volume 88.1 fL (80-100); Monocytes Absolute Auto 1000 /uL (0-900); Monocytes Percent Auto 5.6 % (3-14); Neutrophils Absolute Auto 13400 /uL (1500-7000); Neutrophils Percent Auto 76.7 % (50-75); Platelet Count 571 X10^3/uL (150-400); Red Blood Cell Count 4.45 X10^6/uL (4.0-5.2); Red Cell Distribution Width 14.6 % (11.6-14.8); White Blood Cell Count 17.4 X10^3/uL (4.5-11.0)
[2021-05-23 17:31] LABS: Alanine Aminotransferase 30 IU/L (<35); Albumin 4.7 g/dL (3.5-5.0); Albumin Globulin Ratio 1.3 (1.0-2.8); Alkaline Phosphatase 78 U/L (38-126); Aspartate Aminotransferase 32 IU/L (14-36); BUN Creatinine Ratio 20.8 (6-22); Bilirubin Total 0.4 mg/dL (0.2-1.3); Blood Urea Nitrogen 20 mg/dL (7-17); Calcium 10.2 mg/dL (8.4-10.2); Carbon Dioxide 24 mmol/L (22-32); Chloride 96 mmol/L (98-107); Estimated Glomerular Filt Rate > 60.0 mL/min (>60); Globulin 3.6 g/dL (1.7-4.1); Glucose 226 mg/dL (70-100); HEMOLYSIS < 15 (0-50); Lipase 100 U/L (23-300); Potassium 4.8 mmol/L (3.4-5.1); Sodium 134 mmol/L (137-145); Total Protein 8.3 g/dL (6.3-8.2)
[2021-05-23 19:31] VITALS: BP 120/56; PULSE 117; RESP 18; O2SAT 100
[2021-05-23 19:38] LABS: RBC Urine 0-1/HPF (0-5/HPF); Squamous Epithelial Cell Urine >30 /HPF (0-5/HPF); WBC Urine 1-5/HPF (0-5/HPF)
[2021-05-23 19:39] LABS: Amorphous Sediment Urine 1+; Bacteria Urine Few (2-10); Calcium Oxalate Crystals Urine Moderate; Hyaline Casts Urine 10-30/LPF; Transitional Epi Cells Urine 1-5/HPF (0-5/HPF)
[2021-05-23 19:40] LABS: Culture Indicated Urine Cult Not Indicated
[2021-05-23 20:00] VITALS: BP 121/66; PULSE 116; RESP 18; O2SAT 100
--- NOTE | 2021-05-23 20:06 | ED.GENADULT ---
HPI - General Adult General Chief complaint: Abdominal Pain Stated complaint: VOMITTED BROWN SENT BY CLINIC Time Seen by Provider: 05/23/21 18:02 Mode of arrival: Wheelchair History of Present Illness HPI narrative: Patient is a 41-year-old female here for evaluation of upper abdominal discomfort, vomiting a brown colored substance, dark brown colored stools. She states that she felt like she has had to use Tums more often recently which is somewhat unusual for her. She has never been diagnosed with heartburn or reflux. She does have quite a bit of anxiety and PTSD. She does state that she was somewhat anxious today. She only had 1 episode of vomiting. She is a rtv-ylxbsuf-toconhtme diabetic states she has had some problems keeping her blood sugars down recently. Related Data Home Medications Medication Instructions Recorded Confirmed bupropion HCl 100 mg tablet 100 mg PO BID 11/11/20 02/23/21 buspirone 10 mg tablet 10 mg PO DAILY PRN tab 11/11/20 02/23/21 clonazepam 0.5 mg tablet 0.25 mg PO BID 11/11/20 02/23/21 duloxetine 20 mg capsule,delayed 60 mg PO DAILY cap 01/06/21 02/23/21 release (Cymbalta) levonorgestrel 20 mcg/24 hours (6 INTRAUTERINE 01/06/21 02/23/21 yrs) 52 mg intrauterine device (Mirena) Previous Rx's Medication Instructions Recorded fluconazole 150 mg tablet 150 mg PO DAILY #1 tab 01/26/21 (Diflucan) atorvastatin 20 mg tablet 20 mg PO QPM #90 tab 02/23/21 glipizide 5 mg tablet 5 mg PO BID #180 tab 02/23/21 metformin 1,000 mg tablet 1,000 mg PO BID #180 tab 02/23/21 Allergies Allergy/AdvReac Type Severity Reaction Status Date / Time No Known Drug Allergies Allergy Verified 05/23/21 16:38 Review of Systems Constitutional Constitutional: Denies fever(s) ENT Ears, Nose, Mouth, and Throat: Reports system reviewed and no additional complaints, except as documented Cardiovascular Cardiovascular: Reports system reviewed and no additional complaints, except as documented Respiratory Respiratory: Reports system reviewed and no additional complaints, except as documented Gastrointestinal Gastrointestinal: Reports as per HPI Genitourinary Genitourinary: Reports system reviewed and no additional complaints, except as documented Musculoskeletal Musculoskeletal: Reports system reviewed and no additional complaints, except as documented Integumentary/Breasts Skin/Breast: Reports system reviewed and no additional complaints, except as documented Neurologic Neurologic: Reports system reviewed and no additional complaints, except as documented Psychiatric Psychiatric: Reports as per HPI Endocrine Endocrine: Reports system reviewed and no additional complaints, except as documented Hematologic/Lymphatic On Anticoagulants: No Allergic/Immunologic Allergic/Immunologic: Reports system reviewed and no additional complaints, except as documented Patient History Medical History Anemia (~2009) Anxiety (~1992) Asthma (~2000) Carpal tunnel syndrome (~2019) Chicken pox (~1987) Depression (~1992) Diabetes (~2014) Dyslipidemia Endometriosis (~2004) Headache (~2019) History of HPV infection (~2019) Irregular menstrual cycle (~2014) Migraines (~2019) Paronychia of great toe of right foot PTSD (post-traumatic stress disorder) (~2017) Sleep apnea (~2013) Type 2 diabetes mellitus without complication Uterine fibroid (~2004) Family History Father Hypertension Hyperlipidemia Mental health problem Mother Hypertension Hyperlipidemia Mental health problem Brother Cancer Mental health problem Brother Hypertension Hyperlipidemia Sister Mental health problem Sister Mental health problem Social History Smoking Status: Former smoker Smoking Status: Former smoker alcohol intake frequency: a few times a month Substance Use Type: marijuana Exam Initial Vital Signs Initial Vital Signs: Vital Signs Temperature 97.0 F L 05/23/21 16:34 Pulse Rate 126 H 05/23/21 16:34 Respiratory Rate 20 05/23/21 16:34 Blood Pressure 156/89 H 05/23/21 16:34 Pulse Oximetry 98 05/23/21 16:34 Const General: cooperative and comfortable HENMT Head: normal to inspection and normocephalic Eyes General: appearance normal, both eyes and all related structures Resp Effort & Inspection: normal respiratory effort Auscultation: clear to auscultation bilaterally Cardio Rate: regular rate Rhythm: regular rhythm GI Inspection: normal to inspection Palpation: soft and No tender Skin General: no rashes or lesions noted Neuro General: patient alert, patient awake, patient oriented x3 and moves all extremities Extrem General: normal to inspection and capillary refill normal Psych Appearance: grossly normal and well kempt Other: Sinus tachycardia Ventricular rate of 180 Normal axis LVH Normal QRS Normal QTC No ST T wave changes Course Orders Ordered: ED Orders 05/23/21 19:01 Urine Microscopic Stat Discontinued Medications Ondansetron HCl (Ondansetron 4 Mg/2 Ml Inj) 4 mg IV NOW ONE Stop: 05/23/21 16:49 Last Admin: 05/23/21 16:51 Dose: 4 mg Documented by: JAYDEN Ondansetron HCl (Ondansetron 4 Mg Odt Prepack) 1 bottle MISC SEEINSTR ONE Stop: 05/23/21 20:08 Last Admin: 05/23/21 20:11 Dose: 1 bottle Documented by: CHER Vital Signs Vital signs: Vital Signs - 8 hr 05/23/21 19:31 05/23/21 20:00 Pulse Rate 117 H 116 H Respiratory Rate 18 18 Blood Pressure 120/56 L 121/66 Pulse Oximetry 100 100 Medical Decision Making Lab Data Lab results reviewed: Yes I reviewed the patient's lab results. Result diagrams: 05/23/21 16:49 05/23/21 16:49 Labs: Lab Results 05/23/21 05/23/21 05/23/21 Range/Units 16:49 16:49 19:01 WBC 17.4 H (4.5-11.0) X10^3/uL RBC 4.45 (4.0-5.2) X10^6/uL Hgb 12.8 (12.0-16.0) g/dL Hct 39.3 (36-46) % MCV 88.1 (80-100) fL MCH 28.8 (26-34) PG MCHC 32.7 (30-36) % RDW 14.6 (11.6-14.8) % Plt Count 571 H (150-400) X10^3/uL Neut % (Auto) 76.7 H (50-75) % Lymph % (Auto) 16.8 L (25-40) % Turner % (Auto) 5.6 (3-14) % Eos % (Auto) 0.3 L (2-4) % Baso % (Auto) 0.6 (0-2) % Neut # (Auto) 36158 H (4939-1893) /uL Lymph # (Auto) 2900 (1627-1528) /uL Turner # (Auto) 1000 H (0-900) /uL Eos # (Auto) 0 (0-450) /uL Baso # (Auto) 100 (0-100) /uL Sodium 134 L (137-145) mmol/L Potassium 4.8 (3.4-5.1) mmol/L Chloride 96 L (98-107) mmol/L Carbon Dioxide 24 (22-32) mmol/L BUN 20 H (7-17) mg/dL Creatinine 0.96 (0.52-1.04) mg/dL Estimated GFR > 60.0 (>60) mL/min BUN/Creatinine Ratio 20.8 (6-22) Glucose 226 H (70-100) mg/dL Calcium 10.2 (8.4-10.2) mg/dL Total Bilirubin 0.4 (0.2-1.3) mg/dL AST 32 (14-36) IU/L ALT 30 (<35) IU/L Alkaline Phosphatase 78 (38-126) U/L Total Protein 8.3 H (6.3-8.2) g/dL Albumin 4.7 (3.5-5.0) g/dL Globulin 3.6 (1.7-4.1) g/dL Albumin/Globulin Ratio 1.3 (1.0-2.8) Lipase 100 (23-300) U/L Urine RBC 0-1/hpf (0-5/HPF) Urine WBC 1-5/hpf (0-5/HPF) Ur Squamous Epith Cells >30 /hpf H (0-5/HPF) Ur Transition Epith Cell 1-5/hpf (0-5/HPF) Calcium Oxalate Crystal Moderate H Amorphous Sediment 1+ Urine Bacteria Few (2-10) H (None) Hyaline Casts 10-30/lpf (None) Urine Yeast 0-1/hpf (None) Ur Culture Indicated? Cult not indicated Point of Care Testing Test Results Negative Urine Dip Bedside Urine Glucose Negative Bedside Urine Bilirubin - Negative Bedside Urine Ketone + 15 Urine Specific [place] 1.030 Bedside Urine Occult Blood - Negative Bedside Urine pH 6.0 Bedside Urine Protein +/- 15 Bedside Urine Urobilinogen - Negative Bedside Urine Nitrite - Negative Point of care testing: Point of Care Testing Test Results Negative Urine Dip Bedside Urine Glucose Negative Bedside Urine Bilirubin - Negative Bedside Urine Ketone + 15 Urine Specific [place] 1.030 Bedside Urine Occult Blood - Negative Bedside Urine pH 6.0 Bedside Urine Protein +/- 15 Bedside Urine Urobilinogen - Negative Bedside Urine Nitrite - Negative MDM Narrative Medical decision making narrative: Patient does have leukocytosis and also a thrombocytosis. She states this is not new for her. She has seen hematology in the past. States this is been an issue her entire life. She does not take any medications for. She has a benign abdominal exam. She is somewhat tachycardic however her H&H are unremarkable. The feel that we can hold on further workup. We can hold on a CT scan based on her presentation today. She does admit that she has quite a bit of anxiety in issues with her PTSD and that potentially could be causing her symptoms. She was given strict return precautions and follow-up instructions. She expressed understanding and agreement. Discharge Plan Departure Patient Disposition: Home Clinical Impression: Abdominal pain, Vomiting Instructions: DI for Abdominal Pain-Adult Activity Restrictions/Additional Instructions: Continue all of your medications as directed. Use the nausea medicine as needed. I do recommend you start on a medicine called famotidine/Pepcid. You can purchase this [id number]-sunluby. Contact your primary doctor for a follow-up. Return to the emergency department for any new or worsening symptoms Prescriptions: No Action fluconazole [Diflucan] 150 mg tablet 150 mg PO DAILY Qty: 1 RF: 0 bupropion HCl 100 mg tablet 100 mg PO BID RF: 0 buspirone 10 mg tablet 10 mg PO DAILY PRNRF: 0 clonazepam 0.5 mg tablet 0.25 mg PO BID RF: 0 duloxetine [Cymbalta] 20 mg capsule,delayed release(DR/EC) 60 mg PO DAILY RF: 0 Mirena 20 mcg/24 hours (6 yrs) 52 mg intrauterine device intrauterine RF: 0 atorvastatin 20 mg tablet 20 mg PO QPM Qty: 90 RF: 1 metformin 1,000 mg tablet 1,000 mg PO BID Qty: 180 RF: 3 glipizide 5 mg tablet 5 mg PO BID Qty: 180 RF: 1 Referrals: Vincent Melvin ARNP [Primary Care Provider] -
[2021-05-23] MEDS: ONDANSETRON 4 MG ODT PREPACK 1 BOTTLE MISC (20:11)
== END 2021-05-23 20:18 | disposition home or self-care (01) ==
PROVIDERS: Emergency Medicine; Emergency Provider Emergency Medicine; PCP Registered Nurse Diabetes Educator
DX: R10.10 Upper abdominal pain, unspecified (principal); R11.10 Vomiting, unspecified; R00.0 Tachycardia, unspecified; D72.829 Elevated white blood cell count, unspecified; D47.3 Essential (hemorrhagic) thrombocythemia
CPT/HCPCS: 36415; 80053; 81003; 81015; 81025; 83690; 85025; 93005; 96374; 99284; J2405

== ENCOUNTER → 2021-05-31 12:44 | Outpatient (CLI) | payer OTHER, SELFPAY ==
--- NOTE | 2021-05-31 12:45 | DI.RAD.S_ITS ---
PROCEDURE: XR ELBOW LT MIN 3V INDICATIONS: L arm pain, swelling TECHNIQUE: 3 views of the elbow were acquired. COMPARISON: None. FINDINGS: Bones: No fractures or dislocations. No suspicious bony lesions. Soft tissues: Moderate elbow joint effusion. No suspicious soft tissue calcifications. IMPRESSION: Moderate joint effusion seen on the lateral view. A definite fracture or traumatic subluxation is not seen. In the setting of trauma a hidden fracture may be present and depending on the clinical status follow-up by CT or MR scanning may become necessary. Dictated by: Jeremy Low M.D. on 05/31/2021 at 13:29 Approved by: Jeremy Low M.D. on 05/31/2021 at 13:31
== END ==
PROVIDERS: PCP Registered Nurse Diabetes Educator; Referring Provider Physician Assistant; Visit Provider Physician Assistant
DX: M25.422 Effusion, left elbow (principal); M79.89 Other specified soft tissue disorders
CPT/HCPCS: 73080

== ENCOUNTER → 2021-12-16 09:17 | Outpatient (CLI) | payer OTHER, MEDICAID, SELFPAY ==
[2021-12-16 10:15] LABS: Hematocrit 40.2 % (36-46); Hemoglobin 13.4 g/dL (12.0-16.0); Mean Corpuscular HGB Conc 33.4 % (30-36); Mean Corpuscular Hemoglobin 29.8 PG (26-34); Mean Corpuscular Volume 89.3 fL (80-100); Platelet Count 497 X10^3/uL (150-400); Red Cell Distribution Width 14.1 % (11.6-14.8); White Blood Cell Count 10.5 X10^3/uL (4.5-11.0)
[2021-12-16 10:20] LABS: Hemoglobin A1C% w Est Avg Glu 11.5 % (4.0-6.0)
[2021-12-16 10:27] LABS: Alanine Aminotransferase 23 IU/L (<35); Albumin 4.5 g/dL (3.5-5.0); Albumin Globulin Ratio 1.4 (1.0-2.8); Alkaline Phosphatase 80 U/L (38-126); Aspartate Aminotransferase 27 IU/L (14-36); BUN Creatinine Ratio 16.4 (6-22); Bilirubin Total 0.4 mg/dL (0.2-1.3); Blood Urea Nitrogen 9 mg/dL (7-17); Calcium 9.4 mg/dL (8.4-10.2); Carbon Dioxide 28 mmol/L (22-32); Chloride 95 mmol/L (98-107); Cholesterol 211 mg/dL (140-199); Estimated Glomerular Filt Rate > 60.0 mL/min (>60); Globulin 3.2 g/dL (1.7-4.1); Glucose 273 mg/dL (70-100); HDL Cholesterol 35 mg/dL (40-60); HEMOLYSIS < 15 (0-50); Potassium 4.3 mmol/L (3.4-5.1); Sodium 134 mmol/L (137-145); Total Protein 7.7 g/dL (6.3-8.2)
[2021-12-16 10:35] LABS: Triglycerides 717 mg/dL (35-150)
[2021-12-16 10:54] LABS: TSH w/ Reflex to FT4 1.15 uIU/mL (0.47-4.68)
[2021-12-16 12:36] LABS: Creatinine Urine Random 96.6 mg/dL
[2021-12-16 12:39] LABS: Microalbumi Creatinin Ratio Ur 155.2 ug/mg CR (<30)
== END ==
PROVIDERS: PCP Registered Nurse Diabetes Educator; Referring Provider Registered Nurse Diabetes Educator; Visit Provider Registered Nurse Diabetes Educator
DX: E11.9 Type 2 diabetes mellitus without complications (principal); E78.5 Hyperlipidemia, unspecified
CPT/HCPCS: 36415; 80053; 80061; 82043; 82570; 83036; 84443; 85027

== ENCOUNTER → 2022-01-31 11:13 | Outpatient (CLI) | payer OTHER, MEDICAID, SELFPAY ==
[2022-02-01 13:18] LABS: Interpretation Negative (Negative)
[2022-02-01 15:05] LABS: Deamidated Gliadin Ab IgA 5 units (0-19); Deamidated Gliadin Ab IgG 3 units (0-19); Immunoglobulin A,Qn 379 mg/dL (87-352); t-Transglutaminase IgA <2 U/mL (0-3)
[2022-02-03 14:08] LABS: Almond IgE <0.10 kU/L (Class 0); Cashew Nut IgE <0.10 kU/L (Class 0); Codfish Allergy IgE < 0.10 kU/L (Class 0); Egg White IgE <0.10 kU/L (Class 0); Hazelnut IgE <0.10 kU/L (Class 0); Milk IgE <0.10 kU/L (Class 0); Peanut IgE <0.10 kU/L (Class 0); Salmon Allergy IgE < 0.10 kU/L (Class 0); Scallop Allergy IgE < 0.10 kU/L (Class 0); Sesame seed Allergy IgE < 0.10 kU/L (Class 0); Shrimp IgE <0.10 kU/L (Class 0); Soybean IgE <0.10 kU/L (Class 0); Tuna Allergy IgE < 0.10 kU/L (Class 0); Walnut IgE <0.10 kU/L (Class 0); Wheat Allergy IgE < 0.10 kU/L (Class 0)
== END ==
PROVIDERS: PCP Registered Nurse Diabetes Educator; Referring Provider Registered Nurse Diabetes Educator; Visit Provider Registered Nurse Diabetes Educator
DX: K52.9 Noninfective gastroenteritis and colitis, unspecified (principal); R11.0 Nausea; R14.2 Eructation; R10.816 Epigastric abdominal tenderness
CPT/HCPCS: 36415; 82784; 83013; 83516; 86003

== ENCOUNTER → 2022-07-06 11:17 | Outpatient (CLI) | payer OTHER, MEDICAID, SELFPAY ==
[2022-07-06 12:55] LABS: BUN Creatinine Ratio 15.4 (6-22); Blood Urea Nitrogen 8 mg/dL (7-17); Calcium 8.9 mg/dL (8.4-10.2); Carbon Dioxide 25 mmol/L (22-32); Chloride 97 mmol/L (98-107); Cholesterol 201 mg/dL (140-199); Estimated Glomerular Filt Rate > 60 mL/min (>60); Glucose 240 mg/dL (70-100); HDL Cholesterol 33 mg/dL (40-60); HEMOLYSIS < 15 (0-50); Potassium 4.3 mmol/L (3.4-5.1); Sodium 134 mmol/L (137-145)
[2022-07-06 13:16] LABS: Triglycerides 618 mg/dL (35-150)
[2022-07-06 15:57] LABS: Hemoglobin A1C% w Est Avg Glu 12.6 % (4.0-6.0)
== END ==
PROVIDERS: PCP Registered Nurse Diabetes Educator; Referring Provider Registered Nurse Diabetes Educator; Visit Provider Registered Nurse Diabetes Educator
DX: E78.5 Hyperlipidemia, unspecified (principal); R80.9 Proteinuria, unspecified
CPT/HCPCS: 36415; 80048; 80061; 83036

== ENCOUNTER → 2022-11-08 12:56 | Outpatient (CLI) | payer OTHER, MEDICAID, SELFPAY ==
--- NOTE | 2022-11-08 | DI.MG.S_ITS ---
BILATERAL DIGITAL SCREENING MAMMOGRAM 3D/2D WITH CAD: 11/08/2022 CLINICAL: Baseline exam. Routine screening. Family history of breast cancer. No prior exams were available for comparison. Both breasts are almost entirely fatty (category a/<25% glandular tissue). Current study was also evaluated with a Computer Aided Detection (CAD) system. No significant masses, calcifications, or other findings are seen in either breast. IMPRESSION: NEGATIVE There is no mammographic evidence of malignancy. A 1 year screening mammogram is recommended. Based on the Tyrer Cuzick model (a risk assessment model) the patient's lifetime risk is 7.4% and her 10 year risk is 1.3%. According to the ACR, ACS, and NCCN guidelines, an annual breast MRI exam along with mammogram is recommended if the patient's lifetime risk is 20% or greater. This exam was interpreted at Station ID: [id number]. NOTE: For mammograms, a report in lay terms will be sent to the patient. Approximately 15% of breast malignancies will not be visualized mammographically. In the management of a palpable breast mass, a negative mammogram must not discourage biopsy of a clinically suspicious lesion. Electronically Signed By: Alessandra escalante/leonard:11/08/2022 15:24:37 letter sent: Normal Exam ACR BI-RADS Category 1: Negative 3341F
== END ==
PROVIDERS: PCP Registered Nurse Diabetes Educator; Referring Provider Registered Nurse Diabetes Educator; Visit Provider Registered Nurse Diabetes Educator
DX: Z12.31 Encounter for screening mammogram for malignant neoplasm of breast (principal); Z80.3 Family history of malignant neoplasm of breast
CPT/HCPCS: 77063; 77067

== ENCOUNTER → 2023-04-07 09:20 | Outpatient (CLI) | payer OTHER, MEDICAID, SELFPAY ==
[2023-04-07 10:16] LABS: Cholesterol 150 mg/dL (140-199); HDL Cholesterol 30 mg/dL (40-60); Triglycerides 487 mg/dL (35-150)
[2023-04-07 10:48] LABS: TSH w/ Reflex to FT4 0.61 uIU/mL (0.47-4.68)
[2023-04-08 07:45] LABS: x Labcorp Estim. Avg Glu (eAG) 260 mg/dL (.); x Labcorp Hemoglobin A1c 10.7 % (4.8-5.6)
== END ==
PROVIDERS: PCP Registered Nurse Diabetes Educator; Referring Provider Registered Nurse Diabetes Educator; Visit Provider Registered Nurse Diabetes Educator
DX: E11.9 Type 2 diabetes mellitus without complications (principal); E78.5 Hyperlipidemia, unspecified; I10 Essential (primary) hypertension; Z68.43 Body mass index [BMI] 50.0-59.9, adult
CPT/HCPCS: 36415; 80061; 82043; 82570; 83036; 84443

== ENCOUNTER → 2023-04-12 16:35 | Outpatient (CLI) | payer OTHER, MEDICAID, SELFPAY ==
[2023-04-12 17:27] LABS: Add Manual Diff / Slide Review NO; Basophils Absolute Auto 100 /uL (0-100); Basophils Percent Auto 0.7 % (0-2); Eosinophils Absolute Auto 100 /uL (0-450); Eosinophils Percent Auto 0.8 % (2-4); Hematocrit 41.1 % (36-46); Lymphocytes Absolute Auto 3600 /uL (1100-4500); Lymphocytes Percent Auto 23.9 % (25-40); Mean Corpuscular HGB Conc 34.2 % (30-36); Mean Corpuscular Hemoglobin 30.9 PG (26-34); Mean Corpuscular Volume 90.5 fL (80-100); Monocytes Absolute Auto 900 /uL (0-900); Monocytes Percent Auto 5.9 % (3-14); Neutrophils Absolute Auto 10200 /uL (1500-7000); Neutrophils Percent Auto 68.7 % (50-75); Platelet Count 585 X10^3/uL (150-400); Red Blood Cell Count 4.54 X10^6/uL (4.0-5.2); Red Cell Distribution Width 13.6 % (11.6-14.8); White Blood Cell Count 14.9 X10^3/uL (4.5-11.0)
[2023-04-12 18:18] LABS: Erythrocyte Sedimentation Rate 41 MM/HR (0-20)
[2023-04-12 18:19] LABS: Alanine Aminotransferase 22 IU/L (<35); Albumin 4.6 g/dL (3.5-5.0); Albumin Globulin Ratio 1.3 (1.0-2.8); Alkaline Phosphatase 71 U/L (38-126); Aspartate Aminotransferase 19 IU/L (14-36); BUN Creatinine Ratio 14.8 (6-22); Bilirubin Total 0.4 mg/dL (0.2-1.3); Blood Urea Nitrogen 8 mg/dL (7-17); Calcium 9.2 mg/dL (8.4-10.2); Carbon Dioxide 25 mmol/L (22-32); Chloride 98 mmol/L (98-107); Estimated Glomerular Filt Rate > 60 mL/min (>60); Globulin 3.5 g/dL (1.7-4.1); Glucose 189 mg/dL (70-100); HEMOLYSIS < 15 (0-50); Sodium 135 mmol/L (137-145); Total Protein 8.1 g/dL (6.3-8.2)
[2023-04-12 18:20] LABS: Rheumatoid Factor < 8.6 IU/mL (<12.0)
[2023-04-13 22:56] LABS: CCP Antibodies IgG/IgA 6 units (0-19)
[2023-04-18 17:07] LABS: ANA Screen, IFA Negative (.)
== END ==
PROVIDERS: PCP Registered Nurse Diabetes Educator; Referring Provider Registered Nurse Diabetes Educator; Visit Provider Registered Nurse Diabetes Educator
DX: L29.9 Pruritus, unspecified (principal); M25.50 Pain in unspecified joint; R23.2 Flushing; E11.9 Type 2 diabetes mellitus without complications; E78.5 Hyperlipidemia, unspecified; I10 Essential (primary) hypertension
CPT/HCPCS: 36415; 80053; 83520; 85025; 85651; 86038; 86140; 86200; 86430

== ENCOUNTER 2023-04-15 17:01 | Emergency (ER) | payer OTHER, MEDICAID, SELFPAY ==
[2023-04-15] VITALS (14 sets, daily range): BP systolic 124–161; BP diastolic 57–86; PULSE 109–119; RESP 16–18; TEMP 36.9; O2SAT 94–100; BMI 48.4
--- NOTE | 2023-04-15 17:14 | DI.RAD.S_ITS ---
PROCEDURE: XR CHEST 1V INDICATIONS: chest pain TECHNIQUE: One view of the chest was acquired. COMPARISON: [facility], [place], XR CHEST 1V, 07/04/2019, 16:13. FINDINGS: Surgical changes and devices: None. Lungs and pleura: Lungs are clear. No pleural effusions or pneumothorax. Mediastinum: Mediastinal contours appear normal. Heart size is normal. Bones and chest wall: No suspicious bony lesions. Overlying soft tissues appear unremarkable. IMPRESSION: No acute cardiopulmonary findings Approved by: Walter Casanova M.D. on 04/15/2023 at 17:25
--- NOTE | 2023-04-15 17:15 | ED_ITS ---
HPI - General Adult <Noelle Heredia DO - Last Filed: 04/20/23 07:44> General Chief complaint: Neuro Symptoms/Deficit Stated complaint: L arm tingling after smoking marijuana Time Seen by Provider: 04/15/23 17:14 Source: patient and EMS Mode of arrival: EMS Limitations: no limitations History of Present Illness HPI narrative: This is a 43-year-old female history of anxiety and PTSD, diabetes, dyslipidemia with multiple complaints of increased tingling in her left arm and chest, tightness in her chest, some shortness of breath, she is felt warm today she is had nausea and had some dry heaving. She denies diarrhea constipation, no urinary symptoms. Patient denies any new weakness. Patient notes that earlier today she was smoking marijuana which [place] with a friend. They had lunch with some [place] and then went and smoked some more marijuana and then she started to feel quite ill. Patient was driving from [place] [place] to this area. They stopped at a local market she continued to feel worse and EMS was contacted and patient presented here. Patient states she has had multiple medication changes in the last 48 hours she is been weaning down her Wellbutrin and had her last dose in last 24 hours, she started Jardiance yesterday and has had 2 doses, she is on Victoza as well as metformin and a statin for cholesterol. Patient states she has been weaning down her Wellbutrin under the direction of her psychiatrist Dr. Velez. She also took an aspirin today she states that is not a regular medication but because she felt unwell. Patient denies any surgeries. No known drug allergies. She denies tobacco, alcohol or other recreational drugs besides marijuana. Patient states she smokes daily. Her primary care is Vincent Melvin. Dr. Velez is her psychiatrist. She notes that they have been discussing with her primary care about referral for evaluation of POTS with cardiology. Related Data Home Medications Medication Instructions Recorded Confirmed levonorgestrel 21 mcg/24 hours (8 intrauterine 01/06/21 04/12/23 yrs) 52 mg intrauterine device (Mirena) Previous Rx's Medication Instructions Recorded omeprazole 20 mg capsule,delayed 20 mg PO DAILY #30 caps 06/08/21 release blood sugar diagnostic (Advanced #100 ea 06/26/22 Glucose Meter Test Strips) blood-glucose meter (Accu-Chek #1 ea 06/26/22 Guide Me Glucose Meter) lancets 33 gauge (BD Ultra Fine #100 ea 06/26/22 Lancets) atorvastatin 20 mg tablet 20 mg PO QPM #90 tabs 08/03/22 glipizide 5 mg tablet 5 mg PO BID #180 tabs 02/05/23 lisinopril 10 mg tablet 10 mg PO DAILY #90 tabs 02/05/23 pen needle, diabetic 32 gauge x #100 ea 02/26/2311/01 (Comfort EZ Pen Falkner) liraglutide 0.6 mg/0.1 mL (18 mg/3 1.8 mg (0.3 mL) SUBCUT .COMPLEX 03/05/23 mL) subcutaneous pen injector #12 mL (Victoza 2-Mitch) buspirone 10 mg tablet 15 mg PO BID #240 tabs 03/22/23 duloxetine 30 mg capsule,delayed 60 mg PO DAILY #180 caps 03/22/23 release propranolol 10 mg tablet 10 mg PO BID PRN panic attack(s) 03/23/23 #60 tabs empagliflozin 25 mg tablet 25 mg PO DAILY #90 tabs 04/12/23 (Jardiance) metformin 1,000 mg tablet 1,000 mg PO BID #60 tabs 04/17/23 Allergies Allergy/AdvReac Type Severity Reaction Status Date / Time No Known Drug Allergies Allergy Verified 04/15/23 17:13 Review of Systems <Noelle Heredia DO - Last Filed: 04/20/23 07:44> Review of Systems ROS Unobtainable: All systems reviewed & are unremarkable except as noted in HPI and below Patient History <Noelle Heredia DO - Last Filed: 04/20/23 07:44> Medical History Anemia (~2009) Anxiety (~1992) Asthma (~2000) Binge eating disorder BMI 50.0-59.9, adult Carpal tunnel syndrome (~2019) Chicken pox (~1987) Depression (~1992) Diabetes (~2014) Dyslipidemia Endometriosis (~2004) Essential hypertension Headache (~2019) History of HPV infection (~2019) Irregular menstrual cycle (~2014) Left arm pain Microalbuminuria Migraines (~2019) Paronychia of great toe of right foot PTSD (post-traumatic stress disorder) (~2017) Sciatica, right side Sleep apnea (~2013) Type 2 diabetes mellitus without complication Uterine fibroid (~2004) Family History Father Hypertension Hyperlipidemia Mental health problem Mother Hypertension Hyperlipidemia Mental health problem Brother Cancer Mental health problem Brother Hypertension Hyperlipidemia Sister Mental health problem Sister Mental health problem Social History Smoking Status: Former smoker Smoking Status: Former smoker alcohol intake frequency: a few times a month Substance Use Type: marijuana Exam <Noelle Heredia DO - Last Filed: 04/20/23 07:44> Narrative Exam Narrative: GENERAL: Alert and oriented x three, obese female in mild distress. HEENT: Head normocephalic, atraumatic, EOMI, pupils reactive, face symmetric, moist mucous membranes NECK: Supple, full range of motion CARDIOVASCULAR: Regular rate and rhythm without murmurs, rubs or gallops. No J VD. RESPIRATORY: Breath sounds equal bilaterally, no wheezes rales or rhonchi. ABDOMEN: Soft, patient has right upper quadrant tenderness. Normoactive bowel sounds all 4 quadrants. No guarding or rebound, rigidity, no mass : No CVA tenderness EXTREMITIES: Normal range of motion, no clubbing or edema. Neurovascularly intact NEUROLOGICAL: Cranial nerves II through XII grossly intact. Sensation intact upper and lower extremities. Moving all extremities. Normal range of motion of upper and lower extremities. Patient ambulated stood and transferred without issue. SKIN: Warm, dry, no petechiae, no rashes or lesions. Initial Vital Signs Initial Vital Signs: Vital Signs Pulse Rate 114 H 04/15/23 17:07 Blood Pressure 134/80 04/15/23 17:07 Pulse Oximetry 95 04/15/23 17:07 <Rhonda Ferris MD - Last Filed: 04/15/23 21:16> Initial Vital Signs Initial Vital Signs: Vital Signs Pulse Rate 114 H 04/15/23 17:07 Blood Pressure 134/80 04/15/23 17:07 Pulse Oximetry 95 04/15/23 17:07 Course <Noelle Heredia DO - Last Filed: 04/20/23 07:44> Orders Ordered: Discontinued Medications Sodium Chloride (Normal Saline 0.9%) 1,000 mls @ 1,000 mls/hr IV BOLUS ONE Stop: 04/15/23 18:53 Last Infusion: 04/15/23 19:25 Dose: 0 mls/hr Documented By: Admin: 04/15/23 18:00 Dose: 1,000 mls/hr Documented By: SILVESTRE Ondansetron HCl (Ondansetron 4 Mg/2 Ml Inj) 4 mg IV NOW ONE Stop: 04/15/23 17:15 Last Admin: 04/15/23 17:28 Dose: 4 mg Documented By: MISHEL Vital Signs Vital signs: Vital Signs - 8 hr 04/15/23 17:13 04/15/23 17:07 04/15/23 17:07 Temperature 98.4 F Pulse Rate 114 H 114 H Respiratory Rate 18 Blood Pressure 134/80 134/80 Pulse Oximetry 94 95 Oxygen Delivery Method Room Air 04/15/23 17:12 04/15/23 17:12 04/15/23 17:32 Temperature Pulse Rate 113 H Respiratory Rate Blood Pressure 142/83 H Pulse Oximetry 95 100 Oxygen Delivery Method 04/15/23 17:33 04/15/23 17:33 04/15/23 18:01 Temperature Pulse Rate 115 H 119 H Respiratory Rate Blood Pressure 124/57 L Pulse Oximetry 96 97 Oxygen Delivery Method 04/15/23 18:03 04/15/23 18:03 04/15/23 18:30 Temperature Pulse Rate 117 H Respiratory Rate 17 Blood Pressure 143/72 H 139/64 Pulse Oximetry 98 Oxygen Delivery Method 04/15/23 18:30 04/15/23 19:00 04/15/23 19:00 Temperature Pulse Rate 118 H 118 H Respiratory Rate Blood Pressure 145/77 H Pulse Oximetry 95 96 Oxygen Delivery Method 04/15/23 19:30 04/15/23 19:30 04/15/23 19:59 Temperature Pulse Rate 114 H Respiratory Rate Blood Pressure 161/86 H Pulse Oximetry 94 97 Oxygen Delivery Method 04/15/23 19:59 04/15/23 20:00 04/15/23 20:00 Temperature Pulse Rate Respiratory Rate Blood Pressure 147/79 H 146/70 H Pulse Oximetry 97 Oxygen Delivery Method 04/15/23 20:30 04/15/23 20:30 Temperature Pulse Rate 117 H Respiratory Rate Blood Pressure 142/63 H Pulse Oximetry 96 Oxygen Delivery Method <Rhonda Ferris MD - Last Filed: 04/15/23 21:16> Orders Ordered: Discontinued Medications Sodium Chloride (Normal Saline 0.9%) 1,000 mls @ 1,000 mls/hr IV BOLUS ONE Stop: 04/15/23 18:53 Last Infusion: 04/15/23 19:25 Dose: 0 mls/hr Documented By: Admin: 04/15/23 18:00 Dose: 1,000 mls/hr Documented By: SILVESTRE Ondansetron HCl (Ondansetron 4 Mg/2 Ml Inj) 4 mg IV NOW ONE Stop: 04/15/23 17:15 Last Admin: 04/15/23 17:28 Dose: 4 mg Documented By: NR Vital Signs Vital signs: Vital Signs - 8 hr 04/15/23 17:13 04/15/23 17:07 04/15/23 17:07 Temperature 98.4 F Pulse Rate 114 H 114 H Respiratory Rate 18 Blood Pressure 134/80 134/80 Pulse Oximetry 94 95 Oxygen Delivery Method Room Air 04/15/23 17:12 04/15/23 17:12 04/15/23 17:32 Temperature Pulse Rate 113 H Respiratory Rate Blood Pressure 142/83 H Pulse Oximetry 95 100 Oxygen Delivery Method 04/15/23 17:33 04/15/23 17:33 04/15/23 18:01 Temperature Pulse Rate 115 H 119 H Respiratory Rate Blood Pressure 124/57 L Pulse Oximetry 96 97 Oxygen Delivery Method 04/15/23 18:03 04/15/23 18:03 04/15/23 18:30 Temperature Pulse Rate 117 H Respiratory Rate 17 Blood Pressure 143/72 H 139/64 Pulse Oximetry 98 Oxygen Delivery Method 04/15/23 18:30 04/15/23 19:00 04/15/23 19:00 Temperature Pulse Rate 118 H 118 H Respiratory Rate Blood Pressure 145/77 H Pulse Oximetry 95 96 Oxygen Delivery Method 04/15/23 19:30 04/15/23 19:30 04/15/23 19:59 Temperature Pulse Rate 114 H Respiratory Rate Blood Pressure 161/86 H Pulse Oximetry 94 97 Oxygen Delivery Method 04/15/23 19:59 04/15/23 20:00 04/15/23 20:00 Temperature Pulse Rate Respiratory Rate Blood Pressure 147/79 H 146/70 H Pulse Oximetry 97 Oxygen Delivery Method 04/15/23 20:30 04/15/23 20:30 Temperature Pulse Rate 117 H Respiratory Rate Blood Pressure 142/63 H Pulse Oximetry 96 Oxygen Delivery Method Medical Decision Making <Noelle Heredia, DO - Last Filed: 04/20/23 07:44> Lab Data 04/15/23 17:03 04/15/23 17:03 Labs: Lab Results 04/15/23 04/15/23 04/15/23 Range/Units 17:03 17:03 17:03 WBC 16.2 H (4.5-11.0) X10^3/uL RBC 4.57 (4.0-5.2) X10^6/uL Hgb 13.9 (12.0-16.0) g/dL Hct 41.4 (36-46) % MCV 90.5 (80-100) fL MCH 30.5 (26-34) PG MCHC 33.7 (30-36) % RDW 13.6 (11.6-14.8) % Plt Count 587 H (150-400) X10^3/uL Neut % (Auto) 72.2 (50-75) % Lymph % (Auto) 20.5 L (25-40) % [place] % (Auto) 6.1 (3-14) % Eos % (Auto) 0.4 L (2-4) % Baso % (Auto) 0.8 (0-2) % Neut # (Auto) 58998 H (2046-9114) /uL Lymph # (Auto) 3300 (2117-3623) /uL [place] # (Auto) 1000 H (0-900) /uL Eos # (Auto) 100 (0-450) /uL Baso # (Auto) 100 (0-100) /uL PT 11.4 (10.1-12.7) SECONDS INR 1.0 (0.9-1.3) APTT 25 L (26-36) SECONDS Sodium 133 L (137-145) mmol/L Potassium 4.1 (3.4-5.1) mmol/L Chloride 96 L (98-107) mmol/L Carbon Dioxide 21 L (22-32) mmol/L BUN 10 (7-17) mg/dL Creatinine 0.55 (0.52-1.04) mg/dL Estimated GFR > 60 (>60) mL/min BUN/Creatinine Ratio 18.2 (6-22) Glucose 265 H (70-100) mg/dL Calcium 9.5 (8.4-10.2) mg/dL Total Bilirubin 0.6 (0.2-1.3) mg/dL AST 20 (14-36) IU/L ALT 23 (<35) IU/L Alkaline Phosphatase 78 (38-126) U/L Total Creatine Kinase 54 (30-135) U/L CK-MB (CK-2) TNP CK-MB (CK-2) Rel Index TNP Troponin I < 0.012 (0.01-0.034) ng/mL Total Protein 8.4 H (6.3-8.2) g/dL Albumin 4.6 (3.5-5.0) g/dL Globulin 3.8 (1.7-4.1) g/dL Albumin/Globulin Ratio 1.2 (1.0-2.8) Lipase 150 (23-300) U/L Urine RBC (0-5/HPF) Urine WBC (0-5/HPF) Ur Squamous Epith Cells (0-5/HPF) Urine Bacteria (None) Ur Culture Indicated? 04/15/23 Range/Units 18:00 WBC (4.5-11.0) X10^3/uL RBC (4.0-5.2) X10^6/uL Hgb (12.0-16.0) g/dL Hct (36-46) % MCV (80-100) fL MCH (26-34) PG MCHC (30-36) % RDW (11.6-14.8) % Plt Count (150-400) X10^3/uL Neut % (Auto) (50-75) % Lymph % (Auto) (25-40) % [place] % (Auto) (3-14) % Eos % (Auto) (2-4) % Baso % (Auto) (0-2) % Neut # (Auto) (6589-2006) /uL Lymph # (Auto) (5022-8007) /uL [place] # (Auto) (0-900) /uL Eos # (Auto) (0-450) /uL Baso # (Auto) (0-100) /uL PT (10.1-12.7) SECONDS INR (0.9-1.3) APTT (26-36) SECONDS Sodium (137-145) mmol/L Potassium (3.4-5.1) mmol/L Chloride (98-107) mmol/L Carbon Dioxide (22-32) mmol/L BUN (7-17) mg/dL Creatinine (0.52-1.04) mg/dL Estimated GFR (>60) mL/min BUN/Creatinine Ratio (6-22) Glucose (70-100) mg/dL Calcium (8.4-10.2) mg/dL Total Bilirubin (0.2-1.3) mg/dL AST (14-36) IU/L ALT (<35) IU/L Alkaline Phosphatase (38-126) U/L Total Creatine Kinase (30-135) U/L CK-MB (CK-2) CK-MB (CK-2) Rel Index Troponin I (0.01-0.034) ng/mL Total Protein (6.3-8.2) g/dL Albumin (3.5-5.0) g/dL Globulin (1.7-4.1) g/dL Albumin/Globulin Ratio (1.0-2.8) Lipase (23-300) U/L Urine RBC None seen (0-5/HPF) Urine WBC None seen (0-5/HPF) Ur Squamous Epith Cells 0-1 /hpf D (0-5/HPF) Urine Bacteria None seen (None) Ur Culture Indicated? Cult not indicated Point of Care Testing Test Results Negative Urine Dip Bedside Urine Glucose 1000 mg/dl Bedside Urine Bilirubin - Negative Bedside Urine Ketone ++ 40 Urine Specific [place] 1.015 Bedside Urine Occult Blood + Bedside Urine pH 6.0 Bedside Urine Protein - Negative Bedside Urine Urobilinogen - Negative Bedside Urine Nitrite - Negative Bedside Urine Leukocytes - Negative Esterase Point of care testing: Point of Care Testing Test Results Negative Urine Dip Bedside Urine Glucose 1000 mg/dl Bedside Urine Bilirubin - Negative Bedside Urine Ketone ++ 40 Urine Specific [place] 1.015 Bedside Urine Occult Blood + Bedside Urine pH 6.0 Bedside Urine Protein - Negative Bedside Urine Urobilinogen - Negative Bedside Urine Nitrite - Negative Bedside Urine Leukocytes - Negative Esterase ECG Data Attestation: I personally reviewed and interpreted this ECG as follows: Prior ECG tracings: available for review Interpretation: Sinus tachycardia rate of 112 MT 146 QRS 88 QTC 469. No acute ST changes appreciated patient has prior from 05/23/2021 which appears fairly similar. [facility] Narrative Medical decision making narrative: 43-year-old presents with constellation of symptoms that started after smoking marijuana earlier today. Patient is slightly tachycardic, afebrile without any hypotension or hypoxia. Initial workup pending. Patient signed out to Dr. Ferris: <Rhonda Ferris MD - Last Filed: 04/15/23 21:16> Lab Data Labs: Lab Results 04/15/23 04/15/23 04/15/23 Range/Units 17:03 17:03 17:03 WBC 16.2 H (4.5-11.0) X10^3/uL RBC 4.57 (4.0-5.2) X10^6/uL Hgb 13.9 (12.0-16.0) g/dL Hct 41.4 (36-46) % MCV 90.5 (80-100) fL MCH 30.5 (26-34) PG MCHC 33.7 (30-36) % RDW 13.6 (11.6-14.8) % Plt Count 587 H (150-400) X10^3/uL Neut % (Auto) 72.2 (50-75) % Lymph % (Auto) 20.5 L (25-40) % [place] % (Auto) 6.1 (3-14) % Eos % (Auto) 0.4 L (2-4) % Baso % (Auto) 0.8 (0-2) % Neut # (Auto) 98250 H (6832-0427) /uL Lymph # (Auto) 3300 (8515-7569) /uL [place] # (Auto) 1000 H (0-900) /uL Eos # (Auto) 100 (0-450) /uL Baso # (Auto) 100 (0-100) /uL PT 11.4 (10.1-12.7) SECONDS INR 1.0 (0.9-1.3) APTT 25 L (26-36) SECONDS Sodium 133 L (137-145) mmol/L Potassium 4.1 (3.4-5.1) mmol/L Chloride 96 L (98-107) mmol/L Carbon Dioxide 21 L (22-32) mmol/L BUN 10 (7-17) mg/dL Creatinine 0.55 (0.52-1.04) mg/dL Estimated GFR > 60 (>60) mL/min BUN/Creatinine Ratio 18.2 (6-22) Glucose 265 H (70-100) mg/dL Calcium 9.5 (8.4-10.2) mg/dL Total Bilirubin 0.6 (0.2-1.3) mg/dL AST 20 (14-36) IU/L ALT 23 (<35) IU/L Alkaline Phosphatase 78 (38-126) U/L Total Creatine Kinase 54 (30-135) U/L CK-MB (CK-2) TNP CK-MB (CK-2) Rel Index TNP Troponin I < 0.012 (0.01-0.034) ng/mL Total Protein 8.4 H (6.3-8.2) g/dL Albumin 4.6 (3.5-5.0) g/dL Globulin 3.8 (1.7-4.1) g/dL Albumin/Globulin Ratio 1.2 (1.0-2.8) Lipase 150 (23-300) U/L Urine RBC (0-5/HPF) Urine WBC (0-5/HPF) Ur Squamous Epith Cells (0-5/HPF) Urine Bacteria (None) Ur Culture Indicated? 04/15/23 Range/Units 18:00 WBC (4.5-11.0) X10^3/uL RBC (4.0-5.2) X10^6/uL Hgb (12.0-16.0) g/dL Hct (36-46) % MCV (80-100) fL MCH (26-34) PG MCHC (30-36) % RDW (11.6-14.8) % Plt Count (150-400) X10^3/uL Neut % (Auto) (50-75) % Lymph % (Auto) (25-40) % [place] % (Auto) (3-14) % Eos % (Auto) (2-4) % Baso % (Auto) (0-2) % Neut # (Auto) (6735-5443) /uL Lymph # (Auto) (0889-0896) /uL [place] # (Auto) (0-900) /uL Eos # (Auto) (0-450) /uL Baso # (Auto) (0-100) /uL PT (10.1-12.7) SECONDS INR (0.9-1.3) APTT (26-36) SECONDS Sodium (137-145) mmol/L Potassium (3.4-5.1) mmol/L Chloride (98-107) mmol/L Carbon Dioxide (22-32) mmol/L BUN (7-17) mg/dL Creatinine (0.52-1.04) mg/dL Estimated GFR (>60) mL/min BUN/Creatinine Ratio (6-22) Glucose (70-100) mg/dL Calcium (8.4-10.2) mg/dL Total Bilirubin (0.2-1.3) mg/dL AST (14-36) IU/L ALT (<35) IU/L Alkaline Phosphatase (38-126) U/L Total Creatine Kinase (30-135) U/L CK-MB (CK-2) CK-MB (CK-2) Rel Index Troponin I (0.01-0.034) ng/mL Total Protein (6.3-8.2) g/dL Albumin (3.5-5.0) g/dL Globulin (1.7-4.1) g/dL Albumin/Globulin Ratio (1.0-2.8) Lipase (23-300) U/L Urine RBC None seen (0-5/HPF) Urine WBC None seen (0-5/HPF) Ur Squamous Epith Cells 0-1 /hpf D (0-5/HPF) Urine Bacteria None seen (None) Ur Culture Indicated? Cult not indicated Point of Care Testing Test Results Negative Urine Dip Bedside Urine Glucose 1000 mg/dl Bedside Urine Bilirubin - Negative Bedside Urine Ketone ++ 40 Urine Specific [place] 1.015 Bedside Urine Occult Blood + Bedside Urine pH 6.0 Bedside Urine Protein - Negative Bedside Urine Urobilinogen - Negative Bedside Urine Nitrite - Negative Bedside Urine Leukocytes - Negative Esterase Point of care testing: Point of Care Testing Test Results Negative Urine Dip Bedside Urine Glucose 1000 mg/dl Bedside Urine Bilirubin - Negative Bedside Urine Ketone ++ 40 Urine Specific [place] 1.015 Bedside Urine Occult Blood + Bedside Urine pH 6.0 Bedside Urine Protein - Negative Bedside Urine Urobilinogen - Negative Bedside Urine Nitrite - Negative Bedside Urine Leukocytes - Negative Esterase MDM Narrative Medical decision making narrative: 43-year-old presents with constellation of symptoms that started after smoking marijuana earlier today. Patient is slightly tachycardic, afebrile without any hypotension or hypoxia. Initial workup pending. Patient signed out to Dr. Ferris: CC: Tachycardia, general malaise, a sense that ?something is off?, paresthesias all acute uncertain prognosis Complicating co-morbidities: Depression, anxiety, hyperlipidemia, diabetes, regular marijuana use for pain control. She has self-described autism with ?body disconnect? as well as hypertension. Data collected from: patient, partner Medical records reviewed: Recent primary care note from April 12 is reviewed. Patient has been doing an extensive amount of investigation to see if she can explain why she is generally feeling unwell and feels that she has chronic infection. Differential considered: Hypertensive urgency, blood sugar abnormalities, anxiety, adverse reaction to marijuana, Exam documented above, pertinent findings include: Mild tachycardia but otherwise essentially normal exam Lab Test results independently reviewed as above. Pertinent findings: CBC shows leukocytosis without a left shift. It does appear that she has chronically elevated white blood cell count. She also has chronic cytosis. She does not appear to have elevated red cell line. 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 In looking at her platelet count today she was worried she may be having a stroke secondary to platelets being elevated CMP is relatively reassuring blood sugar is 265 remainder of labs do not show significant abnormalities. Renal function is appropriate. Lipase is unremarkable Troponin is unremarkable Independently reviewed EKG sinus tachycardia at a rate of 112. Left ventricular hypertrophy. No acute ischemic changes. Normal intervals, normal axis Imaging studies independently reviewed: Chest x-ray does not show any acute abnormalities Treatments: Fluids Discussion: Patient is re-evaluated. At this point she feels better, close to her baseline certainly safe for discharge and ready to go to sleep. We talked a bout her lab work. At this point I do not have any obvious explanation for her tachycardia other than mild dehydration and marijuana use this afternoon. She states that she does regularly use marijuana. No evidence of acute coronary syndrome, stroke, significant pulmonary abnormalities or infection. Findings reviewed with the patient and she does have access to her patient portal. Encouraged her to follow-up with her primary care physician to make sure that she continues to keep herself well hydrated. She is safe for discharge home Discharge Plan Departure Patient Disposition: Home Clinical Impression: Tachycardia, Paresthesia, Malaise Activity Restrictions/Additional Instructions: Thank you for coming in today I am sorry that you are continuing to suffer with the symptoms without specific diagnosis. Fortunately, I am not seeing anything life-threatening in the emergency de partment. Specifically there is no evidence of bacterial or viral infection, significant heart abnormalities that would require hospitalization, liver and kidney functions seem relatively appropriate. As you noted, your white blood cell count and your platelet count are consistently elevated. Your red blood cell count is not. At some point, repeat hematology consultation regarding the persistent white blood cell and platelet count may be appropriate. Please follow-up with your primary care doctor. If you find that you are getting worse or develop any new symptoms, please feel free to return to the emergency department for further evaluation. Prescriptions: No Action buspirone 10 mg tablet 15 mg PO BID Qty: 240 3RF duloxetine 30 mg capsule,delayed release(DR/EC) 60 mg PO DAILY Qty: 180 3RF glipizide 5 mg tablet 5 mg PO BID Qty: 180 1RF lisinopril 10 mg tablet 10 mg PO DAILY Qty: 90 1RF (DME) pen needle, diabetic [Comfort EZ Pen Falkner] 32 gauge x 1/4 needle See Rx Instructions .Route Qty: 100 1RF Rx Instructions: Use one daily Victoza 2-Mitch 0.6 mg/0.1 mL (18 mg/3 mL) pen injector 1.8 mg SUBCUT .COMPLEX Qty: 12 2RF Rx Instructions: 1.8 mg subcutaneously daily propranolol 10 mg tablet 10 mg PO BID PRN (Reason: panic attack(s)) Qty: 60 1RF metformin 1,000 mg tablet 1,000 mg PO BID Qty: 60 0RF (DME) lancets [BD Ultra Fine Lancets] 33 gauge misc See Rx Instructions .ROUTE .MEDSUPPLY Qty: 100 3RF Rx Instructions: As directed (DME) Advanced Gluc Meter Test Strip Strip See Rx Instructions .Route Qty: 100 3RF Rx Instructions: As directed (DME) blood-glucose meter [Accu-Chek Guide Me Glucose Mtr] Misc See Rx Instructions .Route Qty: 1 0RF Rx Instructions: As directed Jardiance 25 mg tablet 25 mg PO DAILY Qty: 90 3RF Mirena 20 mcg/24 hours (6 yrs) 52 mg intrauterine device intrauterine omeprazole 20 mg capsule,delayed release(DR/EC) 20 mg PO DAILY Qty: 30 0RF atorvastatin 20 mg tablet 20 mg PO QPM Qty: 90 3RF Referrals: Vincent Melvin ARNP [Primary Care Provider] - Stand Alone Forms: Patient Portal/API
[2023-04-15 17:19] LABS: Add Manual Diff / Slide Review NO; Basophils Absolute Auto 100 /uL (0-100); Basophils Percent Auto 0.8 % (0-2); Eosinophils Absolute Auto 100 /uL (0-450); Eosinophils Percent Auto 0.4 % (2-4); Hematocrit 41.4 % (36-46); Hemoglobin 13.9 g/dL (12.0-16.0); Lymphocytes Absolute Auto 3300 /uL (1100-4500); Lymphocytes Percent Auto 20.5 % (25-40); Mean Corpuscular HGB Conc 33.7 % (30-36); Mean Corpuscular Hemoglobin 30.5 PG (26-34); Mean Corpuscular Volume 90.5 fL (80-100); Monocytes Absolute Auto 1000 /uL (0-900); Monocytes Percent Auto 6.1 % (3-14); Neutrophils Absolute Auto 11700 /uL (1500-7000); Neutrophils Percent Auto 72.2 % (50-75); Platelet Count 587 X10^3/uL (150-400); Red Blood Cell Count 4.57 X10^6/uL (4.0-5.2); Red Cell Distribution Width 13.6 % (11.6-14.8); White Blood Cell Count 16.2 X10^3/uL (4.5-11.0)
[2023-04-15 17:21] LABS: Prothrombin Time 11.4 SECONDS (10.1-12.7)
[2023-04-15 17:24] LABS: PTT Partial Thromboplastin Tim 25 SECONDS (26-36)
[2023-04-15 17:25] LABS: Alanine Aminotransferase 23 IU/L (<35); Albumin 4.6 g/dL (3.5-5.0); Albumin Globulin Ratio 1.2 (1.0-2.8); Alkaline Phosphatase 78 U/L (38-126); Aspartate Aminotransferase 20 IU/L (14-36); BUN Creatinine Ratio 18.2 (6-22); Bilirubin Total 0.6 mg/dL (0.2-1.3); Blood Urea Nitrogen 10 mg/dL (7-17); Calcium 9.5 mg/dL (8.4-10.2); Carbon Dioxide 21 mmol/L (22-32); Chloride 96 mmol/L (98-107); Creatine Kinase 54 U/L (30-135); Estimated Glomerular Filt Rate > 60 mL/min (>60); Globulin 3.8 g/dL (1.7-4.1); Glucose 265 mg/dL (70-100); HEMOLYSIS < 15 (0-50); Lipase 150 U/L (23-300); Potassium 4.1 mmol/L (3.4-5.1); Sodium 133 mmol/L (137-145); Total Protein 8.4 g/dL (6.3-8.2)
[2023-04-15] MEDS: ONDANSETRON 4 MG/2 ML INJ IV (17:28)
[2023-04-15 17:36] LABS: Troponin I < 0.012 ng/mL (0.01-0.034)
--- NOTE | 2023-04-15 17:48 | PC.NURSE ---
for assessment see triage note.
[2023-04-15] MEDS: SODIUM CHLORIDE 0.9% 1,000 ML 1000 ML IV (18:00)
[2023-04-15 18:43] LABS: Bacteria Urine None Seen; Culture Indicated Urine Cult Not Indicated; RBC Urine None Seen (0-5/HPF); Squamous Epithelial Cell Urine 0-1 /HPF (0-5/HPF); WBC Urine None Seen (0-5/HPF)
--- NOTE | 2023-04-15 20:00 | PC.NURSE ---
Pt ambulatory to bathroom with steady gait. Pt feels better and would like to go home. Will inform provider. Pt tolerating PO fluids.
== END 2023-04-15 21:23 | disposition home or self-care (01) ==
PROVIDERS: Emergency Medicine; Emergency Provider Emergency Medicine; PCP Registered Nurse Diabetes Educator
DX: R00.0 Tachycardia, unspecified (principal); R06.02 Shortness of breath; R20.2 Paresthesia of skin; R53.81 Other malaise
CPT/HCPCS: 36415; 71045; 80053; 81003; 81015; 81025; 82550; 83690; 84484; 85025; 85610; 85730; 93005; 96361; 96374; 99284; J2405

== ENCOUNTER → 2023-07-23 07:53 | Outpatient (CLI) | payer OTHER, MEDICAID, SELFPAY ==
[2023-07-23 08:53] LABS: Hemoglobin A1C% w Est Avg Glu 7.8 % (4.0-6.0)
[2023-07-23 09:16] LABS: BUN Creatinine Ratio 13.5 (6-22); Blood Urea Nitrogen 7 mg/dL (7-17); Calcium 9.8 mg/dL (8.4-10.2); Carbon Dioxide 24 mmol/L (22-32); Chloride 100 mmol/L (98-107); Cholesterol 133 mg/dL (140-199); Estimated Glomerular Filt Rate > 60 mL/min (>60); Glucose 162 mg/dL (70-100); HDL Cholesterol 28 mg/dL (40-60); HEMOLYSIS < 15 (0-50); LDL Cholesterol Calculated 35 mg/dL (<100); Potassium 4.7 mmol/L (3.4-5.1); Sodium 135 mmol/L (137-145); Triglycerides 348 mg/dL (35-150)
[2023-07-23 11:40] LABS: Creatinine Urine Random 75.5 mg/dL
[2023-07-23 11:44] LABS: Microalbumi Creatinin Ratio Ur 19.8 ug/mg CR (<30); Microalbumin Urine Random 1.5 mg/dL (0-1.6)
== END ==
PROVIDERS: PCP Registered Nurse Diabetes Educator; Referring Provider Registered Nurse Diabetes Educator; Visit Provider Registered Nurse Diabetes Educator
DX: E11.9 Type 2 diabetes mellitus without complications (principal); E78.5 Hyperlipidemia, unspecified; R80.9 Proteinuria, unspecified
CPT/HCPCS: 36415; 80048; 80061; 82043; 82570; 83036